=== PATIENT | male | born 1970 | race Caucasian/White ===

== ENCOUNTER 2023-10-10 15:26 | Emergency (ER) | payer BC, SELFPAY ==
[2023-10-10 15:35] VITALS: BP 129/75; PULSE 92; RESP 17; TEMP 37.1; O2SAT 94; BMI 38.4
--- NOTE | 2023-10-10 16:47 | W.ED.EXTPRO ---
HPI - Extremity Problem General: Chief complaint: Extremity Injury, Upper Stated complaint: rt arm inj Time Seen by Provider: 10/10/23 16:36 History of Present Illness: 53-year-old male patient comes in today for complaints of tenderness and bruising to the right distal upper arm. Patient was lifting something heavy yesterday and felt a pop in his right lower arm. Patient has good range of motion of the arm. Patient has tenderness and bruising noted. Distal pulses and sensation are intact. Review of Systems General: Reports: 10 or more systems reviewed and unremarkable except in HPI and below Physical Exam Const: COMMON NORMALS: alert HENMT: COMMON NORMALS: normocephalic HEAD & SCALP: normocephalic Neck/C-Spine: COMMON NORMALS: full ROM Resp: COMMON NORMALS: normal respiratory effort and clear to auscultation bilaterally AUSCULTATION: clear to auscultation bilaterally Cardio: COMMON NORMALS: regular rate and regular rhythm RATE: regular rate RHYTHM: regular rhythm GI: COMMON NORMALS: non-tender Extremity: RIGHT UPPER EXTREMITY: Yes upper arm (Distal bruising and tenderness) Neuro: SENSORIUM/ORIENTATION: Yes alert Skin: COMMON NORMALS: turgor normal GENERAL SKIN EXAM: turgor normal Course Vital Signs: Vital signs: Vital Signs Temperature 98.7 F 10/10/23 15:35 Pulse Rate 92 10/10/23 15:35 Respiratory Rate 17 10/10/23 15:35 Blood Pressure 129/75 10/10/23 15:35 Pulse Oximetry 94 10/10/23 15:35 Oxygen Delivery Me thod Room Air 10/10/23 15:35 MDM - Extremity (Nontraumatic) Medical Decision Making 53-year-old male patient comes in today with tenderness and bruising to the distal right upper arm. Patient reports heavy lifting yesterday when he felt a pop in his arm. Patient noticed today bruising and tenderness to the distal part of the right upper arm. Distal pulses and sensation are intact. Differential diagnosis includes biceps tendon rupture, contusion, vascular injury. No signs of serious injury is noted. Patient has good range of motion of the arm. Most likely patient has a tendon rupture of the distal biceps. Recommended patient follow-up with orthopedics for further evaluation and treatment. Patient reports understanding and agreed to plan. Patient was given 1 weeks off work in order to avoid heavy lifting and to allow healing. No radiology studies performed this visit Discharge Plan Discharge Patient Disposition: Home Clinical Impression: Biceps rupture, distal Qualifiers: Encounter type: initial encounter Laterality: right Qualified Code(s): S46.211A - Strain of muscle, fascia and tendon of other parts of biceps, right arm, initial encounter Condition: Stable Discharge Orders: Discharge ED (Routine); Ordered 10/10/23 Ordered By: Ger Phelps Referrals: Tab Cabral MD [Primary Care Provider] - Discharge Diet: Usual diet Discharge Activity: Limit activity as instructed Patient Instructions: Tendon Rupture (ED) Activity Restrictions/Additional Instructions: Avoid heavy lifting to the affected extremity. Use ice to the area to help with pain and swelling. Use acetaminophen and ibuprofen for further pain relief. Follow-up with dairy nutrition specialist for further evaluation and treatment. Stand Alone Forms: Work/School Release Coding Level of Care Code ED D[employer] for Teddy Sorto
--- NOTE | 2023-10-11 08:04 | DCPLANNER ---
messaged ortho for er f/u
== END 2023-10-10 17:03 | disposition home or self-care (01) ==
PROVIDERS: Emergency Provider Nurse Practitioner Family; PCP Family Medicine
DX: S46.211A Strain of muscle, fascia and tendon of other parts of biceps, right arm, initial encounter (principal); X50.0XXA Overexertion from strenuous movement or load, initial encounter
CPT/HCPCS: 99281

== ENCOUNTER 2023-11-01 17:17 | Emergency (ER) | payer BC, SELFPAY ==
[2023-11-01 17:18] VITALS: BP 169/77; PULSE 73; RESP 16; TEMP 36.6; O2SAT 97
--- NOTE | 2023-11-01 17:33 | ED_ITS ---
HPI - Extremity Problem General: Chief complaint: Extremity Injury, Upper Stated complaint: right arm pain Time Seen by Provider: 11/01/23 17:28 Source: patient Mode of arrival: ambulatory Limitations: no limitations History of Present Illness: 53-year-old male states he was working a month ago and felt a pop in his right arm he seen here and diagnosed likely biceps tendon tear states he never follo wed up taken some time off states he is at work yesterday and went pushing a fridge and twisted his arm and felt increasing pain in his right bicep again with swelling to the right bicep. Rates the pain a 5 out of 10 denies any other injuries. Associated symptoms: Deny chest pain, fever(s) or rash Review of Systems Const: Denies: fever(s), chills, body aches or change in appetite ENMT: Denies: throat pain or dental pain Card: Denies: chest pain Resp: Denies: dyspnea GI: Denies: abdominal pain, nausea, vomiting or diarrhea Musc: Reports: extremity pain; Denies: neck pain or back pain Skin/Breast: Denies: rash Neuro: Denies: headache(s) Physical Exam Const: COMMON NORMALS: no acute distress, patient oriented x3 and healthy appearing HENMT: COMMON NORMALS: normocephalic and atraumatic HEAD & SCALP: normocephalic and atraumatic Neck/C-Spine: COMMON NORMALS: full ROM and supple Chest: COMMONS NORMALS: normal inspection of the chest Resp: COMMON NORMALS: normal respiratory effort Extremity: COMMON NORMALS: full ROM NARRATIVE EXTREMITY EXAM: High riding right bicep with tenderness bruising noted Neuro: COMMON NORMALS: patient oriented x3, moves all extremities and no focal motor deficits Psych: COMMON NORMALS: mental status grossly normal, Normal thought process present and cooperative THOUGHT PROCESS: Normal thought process present Skin: COMMON NORMALS: no rashes or lesions noted and no wounds GENERAL SKIN EXAM: no rashes or lesions noted Course Vital Signs: Vital signs: Vital Signs Temperature 97.9 F 11/01/23 17:18 Pulse Rate 73 11/01/23 17:18 Respiratory Rate 16 11/01/23 17:18 Blood Pressure 169/77 11/01/23 17:18 Pulse Oximetry 97 11/01/23 17:18 Oxygen Delivery Me thod Room Air 11/01/23 17:18 MDM - Extremity (Nontraumatic) Medical Decision Making Patient presents with likely right sided bicep tendon rupture he is to rest ice we will prescribe him Naprosyn he is to follow-up with orthopedics he is return if worsening he understands agrees to plan. Medical Records I reviewed the patient's medical records. No radiology studies performed this visit Discharge Plan Discharge Patient Disposition: Home Clinical Impression: Biceps tendon rupture Qualifiers: Encounter type: initial encounter Laterality: right Qualified Code(s): S46.211A - Strain of muscle, fascia and tendon of other parts of biceps, right arm, initial encounter Condition: Stable Prescriptions: New Naprosyn 500 mg tablet 500 mg PO BID PRN (Reason: pain) Qty: 20 0RF Discharge Orders: Discharge ED (Routine); Ordered 11/01/23 Ordered By: Ryder Coppola Referrals: Sarah Daily MD [Physician] - 1-3 days Tab Cabral MD [Primary Care Provider] - Discharge Diet: Advance as tolerated Discharge Activity: Resume usual activity Patient Instructions: Biceps Tendon Rupture, Opioid Safety Coding Level of Care Code ED Director Of Graduate Admissions for Teddy Sorto
[2023-11-01] MEDS: HYDROcodone-acetaminophen 5-325 mg Tablet 1 TAB PO (17:38)
[2023-11-01 17:48] VITALS: BP 158/78; PULSE 71; RESP 16; TEMP 36.6; O2SAT 98
--- NOTE | 2023-11-02 07:45 | DCPLANNER ---
message sent to ortho for follow up- distal bicep tendon rupture.
== END 2023-11-01 17:47 | disposition home or self-care (01) ==
PROVIDERS: Emergency Provider Emergency Medicine; PCP Family Medicine
DX: S46.211A Strain of muscle, fascia and tendon of other parts of biceps, right arm, initial encounter (principal); X50.1XXA Overexertion from prolonged static or awkward postures, initial encounter
CPT/HCPCS: 99283

== ENCOUNTER → 2023-11-03 15:23 | Outpatient (BNVA) | payer BC, SELFPAY | PROVIDERS: PCP Family Medicine; Visit Provider Nurse Practitioner | DX: S46.211A Strain of muscle, fascia and tendon of other parts of biceps, right arm, initial encounter (principal); X50.0XXA Overexertion from strenuous movement or load, initial encounter | CPT/HCPCS: 73030 ==